=== PATIENT | male | born 1960 | race Two or more races ===

== ENCOUNTER 2021-11-15 14:20 | Emergency (ER) | payer OTHER ==
[~2021-11-15] VITALS: Ht 165.1 cm; Wt 83.4 kg
[2021-11-15 16:32] VITALS: BP 178/95
== END 2021-11-15 17:47 | disposition home or self-care (01) ==
LOC: ER 14:20
DX: S46.911A Strain of unspecified muscle, fascia and tendon at shoulder and upper arm level, right arm, initial encounter (principal); I10 Essential (primary) hypertension; Z95.1 Presence of aortocoronary bypass graft; W01.0XXA Fall on same level from slipping, tripping and stumbling without subsequent striking against object, initial encounter; Y93.89 Activity, other specified; Y92.89 Other specified places as the place of occurrence of the external cause; Y99.0 Civilian activity done for income or pay
CPT/HCPCS: 73030